=== PATIENT | male | born 1945 | race African-American/Black ===

== ENCOUNTER 2018-07-06 10:12 | Outpatient (CLI) | payer OTHER ==
[2018-07-06] MEDS ORDERED: Gadobenate Dimeglumine 529 MG/1 ML (20ML VIAL) ONE (12:38)
--- NOTE | 2018-07-06 15:09 | MRI ---
MRI PELVIS/PROSTATE WITHOUT AND WITH CONTRAST: Date: 07/06/18 HISTORY: Prostate cancer. Patient had a prostate biopsy last year. TECHNIQUE: Multiplanar, multisequence MR images were obtained of the pelvis/prostate without and with IV contras t. These images were evaluated on a [address] workstation. FINDINGS: There is mild hypertrophy of the central gland consistent with BPH. No low T2 signal abnormality is s een within the prostate on this examination. No restricted diffusion or low signal on ADC map is seen within the prostate on this examination. The seminal vesicles are intact without focal abnormality. No pelvic adenopathy is seen. No suspicious osseous lesions are identified. There are severe degenerative changes in the left hip a nd mild degenerative changes in the right hip. IMPRESSION: PIRADS Category 1 - Very low likelihood that a clinically significant cancer is present. POS: [facility]
== END 2018-07-06 10:13 | disposition home or self-care (01) ==
LOC: TBSIIMAG 10:12
DX: C61 Malignant neoplasm of prostate (principal)
CPT/HCPCS: 72197; 82565; A9577

== ENCOUNTER 2023-01-03 09:07 | Outpatient (CLI) | payer MEDICARE, OTHER | END 2023-01-03 09:08 | disposition home or self-care (01) | LOC: RAD 09:07 | PROVIDERS: ATTEND Internal Medicine Critical Care Medicine | DX: R06.00 Dyspnea, unspecified (principal) | CPT/HCPCS: 71046 ==

== ENCOUNTER 2023-07-04 13:34 | Outpatient (CLI) | payer OTHER | END 2023-07-04 13:35 | disposition home or self-care (01) | LOC: RAD 13:34 | PROVIDERS: ATTEND Internal Medicine Critical Care Medicine | DX: R06.00 Dyspnea, unspecified (principal) | CPT/HCPCS: 71046 ==

== ENCOUNTER 2023-10-25 10:40 | Outpatient (CLI) | payer OTHER | END 2023-10-25 10:41 | disposition home or self-care (01) | LOC: RAD 10:40 | PROVIDERS: ATTEND Internal Medicine Critical Care Medicine | DX: R06.00 Dyspnea, unspecified (principal); R91.8 Other nonspecific abnormal finding of lung field | CPT/HCPCS: 71046 ==

== ENCOUNTER 2025-03-20 09:55 | Outpatient (CLI) | payer OTHER | END 2025-03-20 09:56 | disposition home or self-care (01) | LOC: SCSMRI 09:55 | DX: M51.362 Other intervertebral disc degeneration, lumbar region with discogenic back pain and lower extremity pain (principal); M50.33 Other cervical disc degeneration, cervicothoracic region; M48.061 Spinal stenosis, lumbar region without neurogenic claudication; M48.07 Spinal stenosis, lumbosacral region; M47.812 Spondylosis without myelopathy or radiculopathy, cervical region; M43.22 Fusion of spine, cervical region; M48.02 Spinal stenosis, cervical region | CPT/HCPCS: 72141; 72148 ==